=== PATIENT | male | born 1955 | race Caucasian/White ===

== ENCOUNTER 2016-12-19 12:57 | Emergency (ER) | payer OTHER ==
[2016-12-19 13:06] VITALS: BP 160/78
== END 2016-12-19 14:04 | disposition left against medical advice (07) ==
LOC: UCEAST 12:57
DX: R50.9 Fever, unspecified (principal); Z53.21 Procedure and treatment not carried out due to patient leaving prior to being seen by health care provider

== ENCOUNTER 2017-01-01 09:26 | Emergency (ER) | payer OTHER ==
[2017-01-01 09:35] VITALS: BP 141/101
--- NOTE | 2017-01-01 10:26 | UC ---
UC General HPI - HPI Summary HPI Summary: TWO WEEKS OF FEVER, JOINT ACHES, [place]. IN [place] A LOT A HOBBY AND OFTEN BITTEN BY TICKS. NO RASH, BUT CONCERN FOR POSSIBLE LYME DISEASE. HAS PRIMARY CARE TO FOLLOW UP WITH BUT WOULD LIKE TESTING TODAY. WILL FOLLOW UP WITH PCP. NO COLD SYMPTOMS. NO ABDOMINAL PAIN. NO NAUSEA VOMITING. NO DIARHEA, DARK TARRY STOOLS OR CONSTIPATION. NO CHEST PAIN OR SOB. - History of Current Complaint Hx Obtained From: Patient Onset/Duration: Gradual Onset, Lasting Weeks, Still Present Timing: Constant Onset Severity: Moderate Current Severity: Moderate Associated Signs & Symptoms: Positive: Fever, Weakness. Negative: Abdominal Pain, Confusion, Cough, Chest Pain, Dizziness, Diarrhea, Dysuria, Edema, Melena , Nausea, Palpitations, Syncope, SOB, Trauma, Vomiting <Karthikeyan Jacinto - Last Filed: 01/01/17 10:20> <Yumiko Rivas - Last Filed: 01/01/17 12:46> - History of Current Complaint Chief Complaint: UCGeneralIllness Stated Complaint: FEVER Time Seen by Provider: 01/01/17 10:00 - Allergy/Home Medications Allergies/Adverse Reactions: Allergies Allergy/AdvReac Type Severity Reaction Status Date / Time Penicillins Allergy Rash Verified 12/19/16 13:06 PMH/Surg Hx/FS Hx/Imm Hx Previously Healthy: Yes - Surgical History Surgical History: Yes Surgery Procedure, Year, and Place: left shoulder rotator cuff repair - Family History Known Family History: Positive: Hypertension Negative: Blood Disorder - Social History Occupation: Employed Full-time Lives: With Family Alcohol Use: Rare Substance Use Type: None Smoking Status (MU): Never Smoked Tobacco <Karthikeyan Jacinto - Last Filed: 01/01/17 10:20> Review of Systems Constitutional: Fever, Fatigue Skin: Negative Eyes: Negative ENT: Negative Respiratory: Negative Cardiovascular: Negative Gastrointestinal: Negative Genitourinary: Negative Motor: Negative Neurovascular: Negative Musculoskeletal: Arthralgia, Myalgia Neurological: Negative Psychological: Negative All Other Systems Reviewed And Are Negative: Yes <Karthikeyan Jacinto - Last Filed: 01/01/17 10:20> Physical Exam Triage Information Reviewed: Yes Appearance: Well-Appearing, No Pain Distress, Well-Nourished Vital Signs: Initial Vital Signs Temp 99.3 F 01/01/17 09:32 Pulse 102 01/01/17 09:32 Resp 20 01/01/17 09:32 BP 141/101 01/01/17 09:32 Pulse Ox 100 01/01/17 09:32 Vital Signs Reviewed: Yes ENT Exam: Normal ENT: Positive: Normal ENT inspection, Hearing grossly normal, TMs normal Dental Exam: Normal Neck exam: Normal Neck: Positive: Supple, Nontender, No Lymphadenopathy Respiratory Exam: Normal Respiratory: Positive: Chest non-tender, Lungs clear, Normal breath sounds, No respiratory distress, No accessory muscle use Cardiovascular Exam: Normal Cardiovascular: Positive: RRR, No Murmur, Pulses Normal Abdominal Exam: Normal Musculoskeletal Exam: Normal Musculoskeletal: Positive: Strength Intact, ROM Intact, No Edema Neurological Exam: Normal Psychological Exam: Normal Psychological: Positive: Normal Response To Family Skin Exam: Normal <Karthikeyan Jacinto - Last Filed: 01/01/17 10:20> Vital Signs: Initial Vital Signs Temp 99.3 F 01/01/17 09:32 Pulse 102 01/01/17 09:32 Resp 20 01/01/17 09:32 BP 141/101 01/01/17 09:32 Pulse Ox 100 01/01/17 09:32 <Yumiko Rivas - Last Filed: 01/01/17 12:46> Course/Dx - Differential Dx - Multi-Symptom Differential Diagnoses: Metabolic Abnormality, Sepsis, Urinary Tract Infection, Other - LYME Provider Diagnoses: LYME TESTING <Karthikeyan Jacinto - Last Filed: 01/01/17 10:20> Discharge <Karthikeyan Jacinto - Last Filed: 01/01/17 10:20> <Yumiko Rivas - Last Filed: 01/01/17 12:46> - Discharge Plan Condition: Stable Disposition: HOME Patient Education Materials: Lyme Disease (ED), Fever in Adults (ED) Referrals: [facility] [place] PH[facility]IAN REFERRAL [Outside] Jayshree Jones MD [Primary Care Provider] - Attestation Statement User Type: Provider - I was available for consult. This patient was seen by the SKYLER. The patient was not presented to, seen by, or examined by me. -[place] <Yumiko Rivas - Last Filed: 01/01/17 12:46>
[2017-01-01 12:07] LABS: Hematocrit 45 % (42-52); Hemoglobin 15.2 g/dl (14.0-18.0); Mean Corpuscular HGB Conc 34 g/dl (31-36); Mean Corpuscular Hemoglobin 30 pg (27-31); Mean Corpuscular Volume 89 fL (80-94); Mean Platelet Volume 8 um3 (7.4-10.4); Red Blood Count 5.09 10^6/ul (4.0-5.4); Red Cell Distribution Width 14 % (10.5-15); White Blood Count 9.2 10^3/ul (3.5-10.8)
[2017-01-04 19:56] LABS: Lyme Disease IgG Ab WB Negative (Negative)
== END 2017-01-01 10:25 | disposition home or self-care (01) ==
LOC: UCEAST 09:26
DX: R50.9 Fever, unspecified (principal); R53.1 Weakness; Z11.9 Encounter for screening for infectious and parasitic diseases, unspecified; Z88.0 Allergy status to penicillin
CPT/HCPCS: 36415; 85025; 86617; 86618; 99211; G0463

== ENCOUNTER 2017-11-30 11:12 | Emergency (ER) | payer OTHER ==
--- NOTE | 2017-11-30 11:17 | UC ---
Hypertension HPI - HPI Summary HPI Summary: 62 yo male presents with elevated BP. He tells me that he periodically checks his BP at the free automatic machines at drug stores. Recently it has been elevated, but today it was >180/90 and the machine advised pt be evaluated. He came directly to . He does have a PCP, but has not seen them in over a year and says he does not like going to him. He tells me that over the last month or so he has noticed some intermittent ringing in his ears. Denies fever, chills, recent illness, SOB, chest pain, palpitations, abdominal pain, n/v/d/c, headache , dizziness, vision changes. No previous dx of HTN. Non smoker. - History of Current Complaint Stated Complaint: HIGH BP Time Seen by Provider: 11/30/17 11:17 Hx Obtained From: Patient - Allergies/Home Medications Allergies/Adverse Reactions: Allergies Allergy/AdvReac Type Severity Reaction Status Date / Time Penicillins Allergy Rash Verified 11/30/17 11:22 PMH/Surg Hx/FS Hx/Imm Hx - Additional Past Medical History Additional PMH: None Previously Healthy: Yes - Surgical History Surgical History: Yes Surgery Procedure, Year, and Place: left shoulder rotator cuff repair - Family History Known Family History: Positive: Hypertension Negative: Blood Disorder - Social History Lives: With Family Alcohol Use: Rare Substance Use Type: None Smoking Status (MU): Never Smoked Tobacco Review of Systems Constitutional: Negative Skin: Negative Eyes: Negative ENT: Other - Tinnitus Respiratory: Negative Cardiovascular: Negative Gastrointestinal: Negative Neurovascular: Negative Neurological: Negative Psychological: Negative All Other Systems Reviewed And Are Negative: Yes Physical Exam - Summary Physical Exam Summary: GENERAL: NAD. WDWN. No pain distress. SKIN: No rashes, sores, lesions, or open wounds. HEENT: Head: AT/NC Eyes: EOM intact. Conjunctiva clear without inflammation or discharge. Ears: Hearing grossly normal. TMs intact, no bulging, erythema, or edema. Nose: Nasal mucosa pink and moist. NTTP maxillary and frontal sinus. Throat: Posterior oropharynx without exudates, erythema, or tonsillar enlargement. Uvula midline. NECK: Supple. Nontender. No lymphadenopathy. CHEST: CTAB. No r/r/w. No accessory muscle use. Breathing comfortably and in no distress. CV: RRR. Without m/r/g. Pulses intact. Brisk cap refill. No JVD or carotid bruit. NEURO: Alert. CN II-XII grossly intact. PSYCH: Age appropriate behavior. Triage Information Reviewed: Yes Hypertension Course/Dx - Course Course Of Treatment: Will start him on lisinopril and recommend follow up with his PCP or scheduling with a new PCP NHUNG. [facility] [place] referral number provided. Go to ED if headache, dizziness, or vision changes. - Differential Dx/Diagnosis Provider Diagnoses: High blood pressure Discharge - Sign-Out/Discharge Documenting (check all that apply): Discharge/Admit/Transfer - Discharge Plan Condition: Stable Disposition: HOME Prescriptions: Lisinopril TAB* [Prinivil TAB 10 MG*] 10 mg PO DAILY #30 tab Patient Education Materials: Lisinopril (By mouth), Heart Healthy Diet (DC), Hypertension (ED) Referrals: [facility] [place] PHYSICIAN REFERRAL [Outside] Additional Instructions: If you develop a fever, shortness of breath, chest pain, new or worsening symptoms - please call your PCP or go to the ED. 1) Please call the referral service to schedule an appointment with a primary doctor for follow up NHUNG 2) Please keep checking your blood pressure every 2-3 days at the local drugstore. If your blood pressure remains high or if it is lower than 110/70 please call your primary doctor or go to the ER. - Billing Disposition and Condition Condition: STABLE Disposition: HOME
[2017-11-30 11:28] VITALS: BP 189/98
== END 2017-11-30 12:15 | disposition home or self-care (01) ==
LOC: UCEAST 11:12
DX: R03.0 Elevated blood-pressure reading, without diagnosis of hypertension (principal); Z88.0 Allergy status to penicillin
CPT/HCPCS: 99212; G0463